=== PATIENT | female | born 1945 | race Caucasian/White ===

== ENCOUNTER 2022-08-12 19:00 | Inpatient (IN) | payer MEDICARE, BC ==
[2022-08-12] MEDS ORDERED: Acetaminophen 500 MG TAB ONE (19:35)
[2022-08-12 19:51] LABS: #Eosinphils 0.1 10x3/uL (0.0-0.5); #Monocytes 0.7 10x3/uL (0.0-1.1); #Neutrophils 8.8 10x3/uL (1.5-8.4); %Basophils 0.3 % (0.0-2.0); %Eosinophils 0.7 % (0.0-6.0); %Lymphocytes 20.6 % (18.0-47.0); %Neutrophils 72.1 % (40.0-75.0); Hemoglobin 10.5 g/dL (12.0-15.5); Mean Corpuscular Hemoglobin 28.2 pg (27.0-33.0); Mean Corpuscular Volume 85.3 fl (81.6-98.3); Mean Platelet Volume 10.6 fl (7.4-10.4); Platelet Count 283 10x3/uL (150-450); RBC Distribution Width 13.5 % (11.5-14.5); Red Blood Cell (RBC) Count 3.73 10x6/uL (3.90-5.03); White Blood Cell (WBC) Count 12.1 10x3/uL (3.5-10.5)
[2022-08-12 20:05] LABS: PTT 23.2 sec (22.0-33.0); Prothrombin Time 10.7 sec (9.5-12.1)
[2022-08-12 20:13] LABS: ALT (SGPT) Less than 6 U/L (8-55); AST (SGOT) 13 U/L (5-34); Albumin 3.7 g/dL (3.4-4.8); Alkaline Phosphatase 51 U/L (40-110); Anion Gap 15 mmol/L (10-20); BUN (Urea Nitrogen) 22 mg/dL (9.8-20.1); Bilirubin, Total 0.5 mg/dL (0.2-1.2); Calc. Creatinine Clearance 0 mL/min (70-130); Calcium 8.7 mg/dL (7.8-10.44); Carbon Dioxide 22 mmol/L (23-31); Chloride 108 mmol/L (98-107); Estimated GFR 71; Globulin 2.1 g/dL (2.4-3.5); Glucose 153 mg/dL (83-110); Magnesium 1.9 mg/dL (1.6-2.6); Potassium 3.7 mmol/L (3.5-5.1); Protein, Total 5.8 g/dL (5.8-8.1); Sodium 141 mmol/L (136-145)
[2022-08-12] MEDS ORDERED: HYDROcodone/Acetaminophen 5/325 mg Tablet PO PRN (21:11)
[2022-08-12] MEDS ORDERED: Acetaminophen 325 MG TAB PO PRN (21:11)
[2022-08-12] MEDS ORDERED: Senokot S 8.6-50 MG TAB PO PRN (21:11)
[2022-08-12] MEDS ORDERED: Ondansetron PF 4 MG/2 ML Vial IVP PRN (21:11)
[2022-08-12] MEDS ORDERED: Calcium Carbonate 500 MG ChewTAB PO PRN (21:11)
[2022-08-12 23:57] VITALS: BMI 21.7
[2022-08-12] MEDS ORDERED: Lactated Ringer's 500 ML IV SCH (23:59)
[2022-08-13] MEDS ORDERED: Carbidopa/Levodopa 25-100 mg Tablet PO SCH ×2 (00:15→00:30)
[2022-08-13] MEDS: Lactated Ringer's 1,000 ML IV SCH ×3 (00:47→23:16)
[2022-08-13] MEDS: Pantoprazole 40 MG VIAL IVP SCH ×3 (00:47→23:33)
[2022-08-13] MEDS ORDERED: Lactated Ringer's 500 ML IV SCH (01:15)
[2022-08-13 02:27] LABS: SARS-CoV-2 NAA Rapid Test Not Detected (NotDetected)
[2022-08-13 05:06] LABS: #Monocytes 0.4 10x3/uL (0.0-1.1); %Basophils 0.3 % (0.0-2.0); %Eosinophils 0.4 % (0.0-6.0); %Lymphocytes 27.9 % (18.0-47.0); %Monocytes 5.7 % (0.0-10.0); %Neutrophils 65.6 % (40.0-75.0); Hemoglobin 8.8 g/dL (12.0-15.5); Mean Corpuscular HGB CONC 33.5 g/dL (32.0-36.0); Mean Corpuscular Hemoglobin 28.6 pg (27.0-33.0); Mean Corpuscular Volume 85.4 fl (81.6-98.3); Platelet Count 220 10x3/uL (150-450); RBC Distribution Width 13.7 % (11.5-14.5); Red Blood Cell (RBC) Count 3.08 10x6/uL (3.90-5.03); White Blood Cell (WBC) Count 7.5 10x3/uL (3.5-10.5)
[2022-08-13 05:18] LABS: Anion Gap 12 mmol/L (10-20); BUN (Urea Nitrogen) 24 mg/dL (9.8-20.1); Calc. Creatinine Clearance 50 mL/min (70-130); Calcium 8.3 mg/dL (7.8-10.44); Carbon Dioxide 25 mmol/L (23-31); Chloride 108 mmol/L (98-107); Estimated GFR 79; Glucose 97 mg/dL (83-110); Iron 28 ug/dL (50-170); Iron Binding Capacity, Total 188 mcg/dL (265-497); Potassium 3.8 mmol/L (3.5-5.1); Sodium 141 mmol/L (136-145)
[2022-08-13 06:54] LABS: Bilirubin 3+ (Negative); Blood, Urine 150 (Negative); Clarity Clear (Clear); Glucose, Urine (Dipstick) Normal (Negative); Ketone, Urine 15 mg/dL (Negative); Leukocyte 25 (Negative); Nitrite Negative (Negative); Protein, Urine (Dipstick) 30 mg/dl (Neg-Trace); Specific Gravity, Urine 1.025 (1.005-1.030)
[2022-08-13 07:10] LABS: Bacteria/HPF 1+ HPF (None Seen); RBC/HPF 0-3 HPF (0-3); Squamous Epithelial 0-3 HPF (0-3); WBC/HPF 0-3 HPF (0-3)
[2022-08-13 07:11] LABS: Mucous/LPF 3+ LPF (<2+)
[2022-08-13] MEDS ORDERED: Electrolyte Replacement Protocol 1 EACH FS PRN (07:45)
[2022-08-13] MEDS ORDERED: Magnesium 2 GM/50 ML(in water) 2 GM in Premix Bag 1 BAG IVPB SCH (08:00)
[2022-08-13] MEDS ORDERED: clonazePAM 0.5 MG TAB PO PRN (09:40)
[2022-08-13] MEDS ORDERED: tiZANidine HCl 4 MG TAB PO PRN (09:43)
[2022-08-13] MEDS: Carbidopa/Levodopa 25-100 mg Tablet PO SCH ×4 (09:50→21:30)
[2022-08-13] MEDS ORDERED: Mag-Al 1200 mg/1200 mg/30 ML UDCUP PO PRN (14:12)
[2022-08-13] MEDS ORDERED: Calcium Carbonate 500 MG ChewTAB PO PRN (14:13)
[2022-08-13 14:33] LABS: Hemoglobin 8.4 g/dL (12.0-15.5); Platelet Count 218 10x3/uL (150-450)
[2022-08-13] MEDS ORDERED: GoLYTELY 4,000 ml Bottle PO SCH (15:15)
[2022-08-13] MEDS ORDERED: Hydroxychloroquine Sulfate 200 MG TAB PO SCH (21:00)
[2022-08-13 21:17] LABS: Hemoglobin 9.1 g/dL (12.0-15.5); Platelet Count 243 10x3/uL (150-450)
[2022-08-13] MEDS: Metoprolol Tartrate 25 MG TAB PO PRN (21:39)
[2022-08-14 06:12] LABS: Anion Gap 15 mmol/L (10-20); BUN (Urea Nitrogen) 11 mg/dL (9.8-20.1); Carbon Dioxide 25 mmol/L (23-31); Chloride 108 mmol/L (98-107); Potassium 3.6 mmol/L (3.5-5.1); Sodium 144 mmol/L (136-145)
[2022-08-14 06:13] LABS: Calc. Creatinine Clearance 52 mL/min (70-130); Calcium 8.7 mg/dL (7.8-10.44); Estimated GFR 82; Glucose 80 mg/dL (83-110); Magnesium 2.2 mg/dL (1.6-2.6); Phosphorus 2.9 mg/dL (2.3-4.7)
[2022-08-14 06:19] LABS: #Eosinphils 0.1 10x3/uL (0.0-0.5); #Monocytes 0.5 10x3/uL (0.0-1.1); #Neutrophils 4.2 10x3/uL (1.5-8.4); %Basophils 0.4 % (0.0-2.0); %Eosinophils 1.1 % (0.0-6.0); %Lymphocytes 34.2 % (18.0-47.0); %Monocytes 6.2 % (0.0-10.0); Hemoglobin 9.7 g/dL (12.0-15.5); Mean Corpuscular HGB CONC 33.1 g/dL (32.0-36.0); Mean Corpuscular Hemoglobin 28.1 pg (27.0-33.0); Mean Corpuscular Volume 84.9 fl (81.6-98.3); Mean Platelet Volume 10.9 fl (7.4-10.4); Platelet Count 271 10x3/uL (150-450); RBC Distribution Width 13.4 % (11.5-14.5); Red Blood Cell (RBC) Count 3.45 10x6/uL (3.90-5.03); White Blood Cell (WBC) Count 7.3 10x3/uL (3.5-10.5)
[2022-08-14] MEDS: Metoprolol Tartrate 25 MG TAB PO PRN (08:05)
[2022-08-14] MEDS: Lactated Ringer's 1,000 ML IV SCH (08:05)
[2022-08-14] MEDS ORDERED: Pramipexole Di-HCl 0.25 MG TAB PO SCH (09:00)
[2022-08-14] MEDS: Carbidopa/Levodopa 25-100 mg Tablet PO SCH ×4 (10:24→21:07)
[2022-08-14] MEDS ORDERED: D5 1/2 NS w/20 mEq KCL 1,000 ML IV SCH ×2 (10:30→12:12)
[2022-08-14] MEDS: Pantoprazole 40 MG VIAL IVP SCH ×2 (11:58→23:39)
[2022-08-14] MEDS ORDERED: Labetalol HCl 100 MG/20 ML VIAL SLOW IVP PRN (12:12)
[2022-08-14] MEDS ORDERED: PROPOFOL 40 ML ONE (13:05)
[2022-08-14 19:57] LABS: Hemoglobin A1c 5.1 % (4.0-6.0)
[2022-08-14] MEDS: Metoprolol Tartrate 25 MG TAB PO SCH (21:06)
[2022-08-15 04:48] VITALS: TEMP 98
[2022-08-15 06:28] LABS: Hemoglobin 9.5 g/dL (12.0-15.5); Platelet Count 262 10x3/uL (150-450)
[2022-08-15] MEDS ORDERED: Metoprolol Tartrate 25 MG TAB PO SCH (09:45)
[2022-08-15] MEDS: Carbidopa/Levodopa 25-100 mg Tablet PO SCH (09:49)
[2022-08-15] MEDS: Metoprolol Tartrate 25 MG TAB PO SCH (09:50)
[2022-08-15 10:45] VITALS: BP 153/89
== END 2022-08-15 12:00 | disposition home or self-care (01) | DRG 378 ==
LOC: CSHERS 19:00 → CSHTELE 23:38
PROVIDERS: ADMIT Student in an Organized Health Care Education/Training Program; ATTEND Internal Medicine
PROC: 0DJ08ZZ Inspection of Upper Intestinal Tract, Via Natural or Artificial Opening Endoscopic (ICD-10-PCS; principal; 2022-08-14)
PROC: 0DBK8ZZ Excision of Ascending Colon, Via Natural or Artificial Opening Endoscopic (ICD-10-PCS; 2022-08-14)
DX: K57.31 Diverticulosis of large intestine without perforation or abscess with bleeding (principal); D62 Acute posthemorrhagic anemia; G20 Parkinson's disease; M19.90 Unspecified osteoarthritis, unspecified site; Z96.652 Presence of left artificial knee joint; R55 Syncope and collapse; R73.9 Hyperglycemia, unspecified; K59.00 Constipation, unspecified; D12.2 Benign neoplasm of ascending colon; K62.5 Hemorrhage of anus and rectum; E86.0 Dehydration; D72.829 Elevated white blood cell count, unspecified; F41.9 Anxiety disorder, unspecified; E83.42 Hypomagnesemia; I12.9 Hypertensive chronic kidney disease with stage 1 through stage 4 chronic kidney disease, or unspecified chronic kidney disease; D53.9 Nutritional anemia, unspecified; Z96.1 Presence of intraocular lens; Z88.8 Allergy status to other drugs, medicaments and biological substances; Z79.82 Long term (current) use of aspirin; Z79.899 Other long term (current) drug therapy; Z98.890 Other specified postprocedural states; Z90.49 Acquired absence of other specified parts of digestive tract; Z80.0 Family history of malignant neoplasm of digestive organs; Z98.49 Cataract extraction status, unspecified eye; Z20.822 Contact with and (suspected) exposure to COVID-19
CPT/HCPCS: 36415; 80048; 80053; 81001; 82274; 82728; 83036; 83540; 83550; 83735; 84100; 85014; 85018; 85025; 85049; 85610; 85730; 86850; 86900; 86901; 88305; 93005; C9113; J2704; J3475; J3480; J7120; U0002